=== PATIENT | female | born 1970 | race Caucasian/White ===

== ENCOUNTER 2020-07-22 16:13 | Outpatient (CLI) | payer OTHER, SELFPAY ==
[2020-07-24 13:59] LABS: SARS-CoV-2 RNA PCR Negative
== END 2020-07-22 16:14 | disposition home or self-care (01) ==
PROVIDERS: PCP Internal Medicine; Visit Provider Internal Medicine
DX: Z20.828 Contact with and (suspected) exposure to other viral communicable diseases (principal)
CPT/HCPCS: 87635; C9803; U0003

== ENCOUNTER 2023-10-18 19:54 | Outpatient (CLI) | payer OTHER, SELFPAY ==
--- NOTE | 2023-10-30 10:48 | WPDSLEEPSTUD ---
Sleep Study Date of Study: 10/18/23 Ordering Provider: Wolf Titus MD Interpreting Physician: Allison Lombardo MD Sleep Study Type: Polysomnogram Height: 1.6 m Weight: 57.606 kg Body Mass Index: 22.4 Neck Circumference (inches): 13 [place]: 7 Reason for Sleep Study Poor sleep, has tried sleeping pills, sound machine Sleep History Sherlyn Escalona is a 53-year-old woman with 10 years of poor sleep. She has tried sleeping pills and a sound machine.. She never awakens from sleep short of breath. She never wakes at night with heartburn, belching or coughing.??She never snores, never snores loudly enough that others complain. She constantly has trouble sleeping when she has a cold. She rarely wakes up gasping for breath during the night. She never has breathing problems at night. She occasionally sweats excessively at night. She rarely notices her heart pounding or beating irregularly during the night. She occasionally falls asleep during the day. She never falls asleep involuntarily, never falls asleep while driving. She never experiences loss of muscle tone with strong emotion. She never feels paralyzed on waking or falling asleep. She rarely experiences vivid dreams upon waking or falling asleep. She never feels afraid of going to sleep. She occasionally has nightmares. She occasional recalls her dreams. She frequently has thoughts racing through her mind. She never feels sad or depressed. She frequently feels anxiety. She rarely notices parts of her body jerk. She never kicks during the night. She never feels crawling or aching feelings in her legs. She never feels leg pain at night. She never has morning jaw pain, and occasionally grinds her teeth at night. She frequently feels bothered by pain during the day, is frequently awakened by pain during the night. She constantly wakes up feeling stiff in the morning, constantly wakes feeling sore or achy in the morning. She constantly awakens with pain in her neck, spine, or joints. She has memory problems, concentration difficulties, insomnia, fatigue and she takes antacids regularly. Normal bedtime is 9:00 p.m., falling asleep within 10-15 minutes, waking 4-5 times at night, goes to the bathroom, repositions herself and tries to return to sleep. On average, she is able to return to sleep within 5 minutes. She wakes in the morning by 7:15 a.m.. On weekends, bedtime is also 9:00 a.m., wake time is 8:00 a.m.. She estimates getting between 7 and 8 hours of sleep at night. She takes naps in the afternoon or evening. A short nap lasting 10-15 minute is not refreshing. She is usually drowsy on awakening. She feels better in the evening compared to other times of day. Habits:??Tobacco: Never smoker Caffeine: 1-2 cups per day. Alcohol: none Recreational substances: none [facility] Past Medical History Medical History (Updated 10/30/23 @ 11:34 by Allison Lombardo MD) Dysthymic disorder Gastroesophageal reflux disease without esophagitis Insomnia Irritable bowel syndrome (IBS) Psoriasis Rhinitis Family History Family History (Updated 10/30/23 @ 11:00 by Allison Lombardo MD) Other No problems noted. Mother Hypertension Depression Anxiety Diabetes mellitus Osteoporosis Grandparent Family history of leukemia Father CAD (coronary artery disease) Social History Social History (Updated 10/30/23 @ 11:00 by Allison Lombardo MD) Smoking status: Never smoker Alcohol intake: never Substance use: never Medications Medications: zolpidem 10 mg HS loratadine 10 mg fluticasone propionate 50 mcg per spray 2 sprays each nostril HS azelastine 137 mcg 0.1% 2 sprays each nostril b.i.d. nortriptyline 75 mg for IBS cholestyramine 4 g oral powder in juice twice a day ProAir HFA 90 mcg per puff, q.6 hours p.r.n. shortness of breath famotidine 20 mg b.i.d. Diprolene (augmented) 0.05% topical ointment b.i.d. Sleep Procedure A full night poly
[2023-10-30 11:06] VITALS: BMI 22.4
== END 2023-10-19 06:43 | disposition home or self-care (01) ==
PROVIDERS: PCP Internal Medicine; Visit Provider Internal Medicine
DX: R06.83 Snoring (principal); G47.30 Sleep apnea, unspecified
CPT/HCPCS: 95810

== ENCOUNTER 2023-11-09 16:26 | Outpatient (CLI) | payer OTHER, SELFPAY ==
--- NOTE | ~2023-11-09 | XR_ITS ---
EXAMINATION: XR knee LT 3V DATE: 11/09/2023 17:38 INDICATION: Left knee pain. TECHNIQUE: 3 views of left knee were obtained. COMPARISON: None. FINDINGS: Bone alignment is normal. No fracture. There is mild osteoarthritis of medial and patellofe moral compartments. No knee joint effusion. IMPRESSION: 1. Mild left knee osteoarthritis. Reviewed, dictated and finalized at location E. ITIAN CONSULTANT
--- NOTE | ~2023-11-09 | XR_ITS ---
EXAMINATION: XR wrist RT min 3V DATE: 11/09/2023 17:39 INDICATION: Right wrist pain. TECHNIQUE: 4 views of right wrist were obtained. COMPARISON: None. FINDINGS: Bone alignment is normal. There is neutral ulnar variance. No fracture. There is degenerati ve cystic change in proximal lunate. No joint space narrowing. IMPRESSION: 1. Degenerative cystic change in proximal lunate, which may be ulnolunate impaction syndrome. Reviewed, dictated and finalized at location E. RITY REPRESENTATIVE IMPRESSION: 1. Degenerative cystic change in proximal lunate, which may be ulnolunate impac tion syndrome.
--- NOTE | ~2023-11-09 | XR_ITS ---
EXAMINATION: XR foot RT min 3V DATE: 11/09/2023 17:39 INDICATION: Right foot pain. TECHNIQUE: 4 views of right foot were obtained. COMPARISON: None. FINDINGS: Bone alignment is normal. No fracture. There is mild osteoarthritis of first metatarsophala ngeal joint. IMPRESSION: 1. Mild osteoarthritis of first metatarsophalangeal joint. Reviewed, dictated and finalized at location E. ET MAN
--- NOTE | ~2023-11-09 | XR_ITS ---
EXAMINATION: XR hand LT min 3V DATE: 11/09/2023 17:39 INDICATION: Left hand pain. TECHNIQUE: 3 views of left hand were obtained. COMPARISON: None. FINDINGS: Bone alignment is normal. No fracture. There is mild osteoarthritis of third distal interph alangeal joint. IMPRESSION: 1. Mild osteoarthritis of third distal interphalangeal joint. Reviewed, dictated and finalized at location E. ATTENDANT
--- NOTE | ~2023-11-09 | XR_ITS ---
EXAMINATION: XR wrist LT min 3V DATE: 11/09/2023 17:40 INDICATION: Left wrist pain. TECHNIQUE: 4 views of left wrist were obtained. COMPARISON: None. FINDINGS: Bone alignment is normal. No fracture. Joint spaces are normal. IMPRESSION: 1. Normal left wrist. Reviewed, dictated and finalized at location E. ATTENDANT HELPER IMPRESSION: 1. Normal left wrist.
--- NOTE | ~2023-11-09 | XR_ITS ---
EXAMINATION: XR knee RT 3V DATE: 11/09/2023 17:38 INDICATION: Right knee pain. TECHNIQUE: 3 views of right knee were obtained. COMPARISON: None. FINDINGS: Bone alignment is normal. No fracture. There is mild osteoarthritis of medial and patellofe moral compartments. No knee joint effusion. IMPRESSION: 1. Mild right knee osteoarthritis. Reviewed, dictated and finalized at location E. WOMEN SERVICES
--- NOTE | ~2023-11-09 | XR_ITS ---
EXAMINATION: XR foot LT min 3V DATE: 11/09/2023 17:40 INDICATION: Left foot pain. TECHNIQUE: 4 views of left foot were obtained. COMPARISON: None. FINDINGS: Bone alignment is normal. No fracture. Joint spaces are normal. IMPRESSION: 1. Normal left foot. Reviewed, dictated and finalized at location E. L ANALYST IMPRESSION: 1. Normal left foot.
--- NOTE | ~2023-11-09 | XR_ITS ---
EXAMINATION: XR hand RT min 3V DATE: 11/09/2023 17:39 INDICATION: Right hand pain. TECHNIQUE: 3 views of right hand were obtained. COMPARISON: None. FINDINGS: Bone alignment is normal. No fracture. There is mild osteoarthritis of second distal interp halangeal joint. IMPRESSION: 1. Mild osteoarthritis of second distal interphalangeal joint. Reviewed, dictated and finalized at location E. ANALYSIS ENGINEERING TECHNICIAN
== END 2023-11-09 16:27 | disposition home or self-care (01) ==
LOC: CHSIMG 16:29
PROVIDERS: PCP Internal Medicine; Visit Provider Internal Medicine
DX: L40.50 Arthropathic psoriasis, unspecified (principal); M15.9 Polyosteoarthritis, unspecified
CPT/HCPCS: 73110; 73130; 73562; 73630

== ENCOUNTER 2024-09-27 14:14 | Outpatient (CLI) | payer OTHER, SELFPAY ==
--- NOTE | ~2024-09-27 | MM_ITS ---
EXAMINATION: MM screening noel BI w cyn HISTORY: Screening TECHNIQUE: Craniocaudal and mediolateral oblique 3-D tomosynthesis images were obtained and synthetic 2-D images were generated. CAD analysis was submitted and interpreted. COMPARISON: 10/03/2018 BREAST PARENCHYMAL COMPOSITION: Dense: The breasts are extremely dense, which lowers the sensitivity of mammography. FINDINGS: There is no evidence of suspicious mass, calcification, or architectural distortion to sugg est malignancy in either breast. There has been no suspicious interval change. IMPRESSION: 1. No mammographic evidence of malignancy. 2. Recommend routine screening mammography in one year. BI-RADS Category 1: Negative . Reviewed, dictated and finalized at location B. HOME SALES REPRESENTATIVE
--- OUTSIDE RECORDS SUMMARY | 2024-09-30 16:43 | XMS_ITS | Clinical Summary ---
Author Organization [facility] Address [address] [place] [address]. 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 Gender Identity Not on file Sexual Orientation Not on file Plan of Treatment Health Maintenance Due Date Last Done Comments Cervical Cancer Screening Pa p Smear (Age 30 to 64) Every 3 Years 1971 Colorectal Cancer Screening Colonoscopy (10 Years) 1971 Annual Physical 1974 Hepatitis C 1989 Hepatitis B Vaccines (1 of 3 - 19+ 3-dose series) 1990 Cervical Cancer Screening Pa p with HPV Testing (Age 30 to 64) Every 5 Years 2001 Cervical Cancer Screening wi th HPV 2001 Zoster Vaccines (1 of 2) 2021 DTaP, Tdap and Td Vaccines ( 2 - Td or Tdap) 08/14/2022 08/14/2012 Mammogram Screening 06/06/2024 06/06/2022 COVID-19 Vaccine (2023-2 5 season) 2024 02/05/2021, 01/15/2021 Influenza Adult (#1) 2024 Meningococcal Vaccine Aged Out No christi tianna eligible based on patient's age to complete this topic Pneumococcal Vaccine: Pediatrics (0 to 5 Years) and At-Risk Patients (6 to 64 Years) Aged Out No longer eligible b ased on patient's age to complete this topic RSV Immunizations Under 20 Months Aged Out No longer eligible b ased on patient's age to complete this topic Procedures Procedure Name Priority Date/Time Associated Diagnosis Comments MG SCREENING W VALERIA NICOLE DIGI Routine 06/06/2022 3:36 PM CDT Visit for screening mammogram from Last 3 Months or Most Recently Relevant to Health Maintenance Results * MG SCREENING W VALERIA NICOLE DIGI (06/06/2022 3:36 PM CDT) Anatomical Region Laterality Modality Breast Bilateral Mammography 07/04/2022 3:58 PM CDT Impressions 07/04/2022 3:59 PM CDT IMPRESSION: No suspicious change since the previous exams. Recommendation: 1: Routine Screening ??Bilateral ??in 1 Year Assessment: ACR BI-RADS 2 - BENIGN FINDING(S) Ordered By: CYNTHIA MAURO Interpreted By: Joe Coker MD, 07/04/2022 3:58 PM Narrative 07/04/2022 3:59 PM CDT Examination: Digital screening mammogram with CAD. Clinical history: Asymptomatic patient presents for routine screening. History of benign needle biopsy on the right. Comparison: 10/11/2018, 10/03/2018. Technique: Bilateral digital mammograms. The exam was interpreted with the use of a computer-aided detection (CAD) system. ??Additional 3-D tomosynthesis images were acquired. Tissue density: The breast tissue is heterogeneously dense. Findings: The breast tissue is heterogeneously dense. The dense tissue may obscure some lesions mammographically. ?? Minor glandular asymmetry remains evident. Metallic biopsy marker clips on the right are now evident. No suspicious mass, microcalcification or area of architectural distortion can be identified. From a mammographic standpoint, routine followup in one year would seem adequate. us Cynthia Mauro MD MAMMO Final Result from Last 3 Months or Most Recently Relevant to Health Maintenance Insurance [facility] Care Teams Aircraft Captain Relationship Specialty Start Date End Date Cynthia Mauro MD [address] [place] [address] PCP - General INTERNAL MEDICINE 05/27/22
--- OUTSIDE RECORDS SUMMARY | 2024-09-30 16:43 | XMS_ITS | Encounter Summary ---
Author Organization [facility] Address [address] [place] [address]. [place] [address] [place] [address] Care Team Providers Care Fish Bin Tender Name Role Phone Unavailable Primary Care Provider Unavailabl e Encounter Details Date Type Department Care Team (Late st Contact Info) Description 09/06/2011 Abstract [facility] [address] [place] [address] Oliver Weber MD [address] [place] [address] Social History Tobacco Use Types Packs/Day Years Used Date Smoking Tobacco: Never Assessed Comments Unknown Sex and Gender Information Value Date Recorded Sex Assigned at Not on file Legal Sex Female 6:[address] PILOT Gender Identity Not on file Sexual Orientation Not on file documented as of this encounter Plan of Treatment Not on file documented as of this encounter Visit Diagnoses Diagnosis Disorder of skin and subcutaneous tissue Unspecified disorder of skin and subcutaneous tissue documented in this encounter
--- OUTSIDE RECORDS SUMMARY | 2024-09-30 16:43 | XMS_ITS | Encounter Summary ---
Author Organization [facility] Address [address] [place] [address]. [place] [address] [place] [address] Care Team Providers Care Vocal Teacher Name Role Phone Unavailable Primary Care Provider Unavailabl e Encounter Details Date Type Department Care Team (Late st Contact Info) Description 11/07/[address] [facility] [address] [facility] [place] [address] Oliver Weber MD [address] [place] [address] Social History Tobacco Use Types Packs/Day Years Used Date Smoking Tobacco: Never Assessed Comments Unknown Sex and Gender Information Value Date Recorded Sex Assigned at Not on file Legal Sex Female 6:00 PM HOGSHEAD HAND Gender Identity Not on file Sexual Orientation Not on file documented as of this encounter Plan of Treatment Not on file documented as of this encounter Visit Diagnoses Not on filedocumented in this encounter
--- OUTSIDE RECORDS SUMMARY | 2024-09-30 16:43 | XMS_ITS | Encounter Summary ---
Author Organization [facility] Address [address] [place] [address]. 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
--- OUTSIDE RECORDS SUMMARY | 2024-09-30 16:43 | XMS_ITS | Encounter Summary ---
Author Organization [facility] Address [address] [place] [address]. [place] [address] [place] [address] Care Team Providers Care Process Validation Engineer Name Role Phone Unavailable Primary Care Provider Unavailabl e Encounter Details Date Type Department Care Team (Late st Contact Info) Description 09/09/2011 Abstract [facility] [address] [place] [address] Oliver Weber MD [address] [place] [address] Social History Tobacco Use Types Packs/Day Years Used Date Smoking Tobacco: Never Assessed Comments Unknown Sex and Gender Information Value Date Recorded Sex Assigned at Not on file Legal Sex Female 6:00 PM PORT CDL A DRIVER Gender Identity Not on file Sexual Orientation Not on file documented as of this encounter Plan of Treatment Not on file documented as of this encounter Visit Diagnoses Diagnosis Examination Unspecified examination documented in this encounter
--- OUTSIDE RECORDS SUMMARY | 2024-09-30 16:43 | XMS_ITS | Encounter Summary ---
Author Organization [facility] Address [address] [place] [address]. [place], [place] [address] [place] [address] Care Team Providers Care Staff Anesthesiologist Name Role Phone Wolf Titus MD Primary Care Provider [phone] Encounter Details Date Type Department Care Team (Latest Contact Info) Description 06/06/2022 Travel Social History Tobacco Use Types Packs/Day Years Used Date Smoking Tobacco: Never Assessed Comments Unknown Sex and Gender Information Value Date Recorded Sex Assigned at Not on file Legal Sex Female 6:00 PM OFFSET PLATE MAKER Gender Identity Not on file Sexual Orientation Not on file COVID-19 Exposure Response Date Recorded In the last 10 days, have yo u been in contact with someone who was confirmed or suspected to have Coronavirus/COVID-19? No / Unsure 06/06/2022 3:15 PM CDT documented as of this encounter Plan of Treatment Not on file documented as of this encounter Visit Diagnoses Not on filedocumented in this encounter Care Teams Staff Anesthesiologist Relationship Specialty Start Date End Date Wolf Titus MD [address] [place] [address] PCP - General INTERNAL MEDICINE 05/27/22 documented as of this encounter
--- OUTSIDE RECORDS SUMMARY | 2024-09-30 16:43 | XMS_ITS | Encounter Summary ---
Author Organization [facility] Address [address] [place] [address]. 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
--- OUTSIDE RECORDS SUMMARY | 2024-09-30 16:43 | XMS_ITS | Encounter Summary ---
Author Organization [facility] Address [address] [place] [address]. [place] [address] [place] [address] Care Team Providers Care Pediatrics Physician Name Role Phone Unavailable Primary Care Provider Unavailabl e Encounter Details Date Type Department Care Team (Late st Contact Info) Description 05/28/[address] [facility] [address] [place] [address] Oliver Weber MD [address] [place] [address] Social History Tobacco Use Types Packs/Day Years Used Date Smoking Tobacco: Never Assessed Comments Unknown Sex and Gender Information Value Date Recorded Sex Assigned at Not on file Legal Sex Female 6:00 PM AWAKE OVERNIGHT COUNSELOR Gender Identity Not on file Sexual Orientation Not on file documented as of this encounter Plan of Treatment Not on file documented as of this encounter Visit Diagnoses Not on filedocumented in this encounter
--- OUTSIDE RECORDS SUMMARY | 2024-09-30 16:43 | XMS_ITS | Encounter Summary ---
Author Organization [facility] Address [address] [place] [address]. [place] [address] [place] [address] Care Team Providers Care Finance Effectiveness Manager Name Role Phone Wolf Mauro MD Primary Care Provider [phone] Reason for Visit * Imaging (Routine) - Closed Specialty Diagnoses / Procedures Referred By Contac t Referred To Contact RADIOLOGY Diagnoses Visit for screening mammogram Procedures MG SCREENING W VALERIA NICOLE DIGI Wolf Mauro MD [address] [place] [address] Phone: tel: fax: Referral ID Status Reason Start Date Expiration Date Visits Re quested Visits Authorized [id number] Closed 05/27/2022 05/27/2023 1 1 Encounter Details Date Type Department Care Team (Late st Contact Info) Description 06/06/2022 3:18 PM CDT - 06/06/2022 11:59 PM CDT Hospital Encounter [facility] [address] [place] [address] Wolf Mauro MD [address] [place] [address] Discharge Disposition: Home or Self Care (Routine Discharge) Social History Tobacco Use Types Packs/Day Years Used Date Smoking Tobacco: Never Assessed Comments Unknown Sex and Gender Information Value Date Recorded Sex Assigned at Not on file Legal Sex Female 6:00 PM SOIL SCIENCE TECHNICAL OFFICER Gender Identity Not on file Sexual Orientation Not on file COVID-19 Exposure Response Date Recorded In the last 10 days, have yo u been in contact with someone who was confirmed or suspected to have Coronavirus/COVID-19? No / Unsure 06/06/2022 3:15 PM CDT documented as of this encounter Plan of Treatment Not on file documented as of this encounter Procedures Procedure Name Priority Date/Time Associated Diagnosis Comments MG SCREENING W VALERIA NICOLE DIGI Routine 06/06/2022 3:36 PM CDT Visit for screening mammogram documented in this encounter Results * MG SCREENING W VALERIA NICOLE DIGI (06/06/2022 3:36 PM CDT) Anatomical Region Laterality Modality Breast Bilateral Mammography 07/04/2022 3:58 PM CDT Impressions 07/04/2022 3:59 PM CDT IMPRESSION: No suspicious change since the previous exams. Recommendation: 1: Routine Screening ??Bilateral ??in 1 Year Assessment: ACR BI-RADS 2 - BENIGN FINDING(S) Ordered By: WOLF MAURO Interpreted By: Joe Coker MD, 07/04/2022 [...] in one year would seem adequate. us Wolf Mauro MD MAMMO Final Result documented in this encounter Visit Diagnoses Not on filedocumented in this encounter Care Teams Finance Effectiveness Manager Relationship Specialty Start Date End Date Wolf Mauro MD [address] [place] [id number] PCP - General INTERNAL MEDICINE 05/27/22 documented as of this encounter
--- OUTSIDE RECORDS SUMMARY | 2024-09-30 16:43 | XMS_ITS | Encounter Summary ---
Author Organization [facility] Address [address] [place] [address]. [place] [address] [place] [address] Care Team Providers Care Roasterman Name Role Phone Unavailable Primary Care Provider Unavailabl e Encounter Details Date Type Department Care Team (Late st Contact Info) Description 03/02/[address] 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
--- OUTSIDE RECORDS SUMMARY | 2024-09-30 16:43 | XMS_ITS | Encounter Summary ---
Author Organization [facility] Address [address] [place] [address]. [place] [address] [place] [address] Care Team Providers Care Dietary Service Aide Name Role Phone Unavailable Primary Care Provider Unavailabl e Encounter Details Date Type Department Care Team (Late st Contact Info) Description 05/29/[address] 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
--- OUTSIDE RECORDS SUMMARY | 2024-09-30 16:43 | XMS_ITS | Encounter Summary ---
Author Organization [facility] Address [address] [place] [address]. [place] [address] [place] [address] Care Team Providers Care Transport Analyst Name Role Phone Unavailable Primary Care Provider Unavailabl e Encounter Details Date Type Department Care Team (Late st Contact Info) Description 06/14/[address] [facility] [address] [place] [address] Oliver Weber MD [address] [place] [address] Social History Tobacco Use Types Packs/Day Years Used Date Smoking Tobacco: Never Assessed Comments Unknown Sex and Gender Information Value Date Recorded Sex Assigned at Not on file Legal Sex Female 6:00 PM ANESTHESIOLOGY MEDICAL DOCTOR Gender Identity Not on file Sexual Orientation Not on file documented as of this encounter Plan of Treatment Not on file documented as of this encounter Visit Diagnoses Diagnosis Pain in joint, upper arm documented in this encounter
--- OUTSIDE RECORDS SUMMARY | 2024-09-30 16:43 | XMS_ITS | Encounter Summary ---
Author Organization [facility] Address [address] [place] [address]. [place] [address] [place] [address] Care Team Providers Care Logistician Name Role Phone Unavailable Primary Care Provider Unavailabl e Encounter Details Date Type Department Care Team (Late st Contact Info) Description 02/08/2016 Abstract [facility] [address] [facility] [place] [address] Latasha Carabjal MD [address] [place], [place] [address] Social History Tobacco Use Types Packs/Day Years Used Date Smoking Tobacco: Never Assessed Comments Unknown Sex and Gender Information Value Date Recorded Sex Assigned at Not on file Legal Sex Female 6:00 PM CHIEF I DISPATCHER Gender Identity Not on file Sexual Orientation Not on file documented as of this encounter Plan of Treatment Not on file documented as of this encounter Visit Diagnoses Diagnosis Contusion of right elbow Contusion of elbow documented in this encounter
--- OUTSIDE RECORDS SUMMARY | 2024-09-30 16:43 | XMS_ITS | Encounter Summary ---
Author Organization [facility] Address [address] [place] [address]. [place] [address] [place] [address] Care Team Providers Care Business Law Instructor Name Role Phone Unavailable Primary Care Provider Unavailabl e Encounter Details Date Type Department Care Team (Late st Contact Info) Description 07/13/[address] [facility] [address] 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
--- OUTSIDE RECORDS SUMMARY | 2024-09-30 16:44 | XMS_ITS | Encounter Summary ---
Author Organization [facility] Address [address] [place] [address]. 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
--- OUTSIDE RECORDS SUMMARY | 2024-09-30 16:44 | XMS_ITS | Encounter Summary ---
Author Organization [facility] Address [address] [place] [address]. [place] [address] [place] [address] Care Team Providers Care Floating Labor Gang Supervisor Name Role Phone Unavailable Primary Care Provider Unavailabl e Encounter Details Date Type Department Care Team (Late st Contact Info) Description 11/19/2002 Abstract [facility] [address] [place] [address] , Generic Conversion, Social History Tobacco Use Types Packs/Day Years Used Date Smoking Tobacco: Never Assessed Comments Unknown Sex and Gender Information Value Date Recorded Sex Assigned at Not on file Legal Sex Female 6:00 PM PRIVATE BRANCH EXCHANGE OPERATOR Gender Identity Not on file Sexual Orientation Not on file documented as of this encounter Plan of Treatment Not on file documented as of this encounter Visit Diagnoses Not on filedocumented in this encounter
--- OUTSIDE RECORDS SUMMARY | 2024-09-30 16:44 | XMS_ITS | Encounter Summary ---
Author Organization [facility] Address [address] [place] [address]. [place] [address] [place] [address] Care Team Providers Care Customer Experience Manager Name Role Phone Unavailable Primary Care Provider Unavailabl e Encounter Details Date Type Department Care Team (Late st Contact Info) Description 06/13/2000 Abstract [facility] [address] [place] [address] , Generic Conversion, Social History Tobacco Use Types Packs/Day Years Used Date Smoking Tobacco: Never Assessed Comments Unknown Sex and Gender Information Value Date Recorded Sex Assigned at Not on file Legal Sex Female 6:00 PM COMPONENT LAB TECH Gender Identity Not on file Sexual Orientation Not on file documented as of this encounter Plan of Treatment Not on file documented as of this encounter Visit Diagnoses Not on filedocumented in this encounter
--- OUTSIDE RECORDS SUMMARY | 2024-09-30 16:44 | XMS_ITS | Encounter Summary ---
Author Organization [facility] Address [address] [place] [address]. [place] [address] [place] [address] Care Team Providers Care Transportation Maintenance Worker Name Role Phone Unavailable Primary Care Provider Unavailabl e Encounter Details Date Type Department Care Team (Late st Contact Info) Description 09/27/2001 Abstract [facility] [address] [place] [address] , Generic Conversion, Social History Tobacco Use Types Packs/Day Years Used Date Smoking Tobacco: Never Assessed Comments Unknown Sex and Gender Information Value Date Recorded Sex Assigned at Not on file Legal Sex Female 6:00 PM FLASK PUSHER Gender Identity Not on file Sexual Orientation Not on file documented as of this encounter Plan of Treatment Not on file documented as of this encounter Visit Diagnoses Not on filedocumented in this encounter
--- OUTSIDE RECORDS SUMMARY | 2024-09-30 16:44 | XMS_ITS | Encounter Summary ---
Author Organization [facility] Address [address] [place] [address]. [place] [address] [place] [address] Care Team Providers Care Personal Assistant Name Role Phone Unavailable Primary Care Provider Unavailabl e Encounter Details Date Type Department Care Team (Late st Contact Info) Description 07/13/2000 Abstract [facility] [address] [place] [address] , Generic Conversion, Social History Tobacco Use Types Packs/Day Years Used Date Smoking Tobacco: Never Assessed Comments Unknown Sex and Gender Information Value Date Recorded Sex Assigned at Not on file Legal Sex Female 6:00 PM CLINICAL INFORMATICS EDUCATOR Gender Identity Not on file Sexual Orientation Not on file documented as of this encounter Plan of Treatment Not on file documented as of this encounter Visit Diagnoses Not on filedocumented in this encounter
--- OUTSIDE RECORDS SUMMARY | 2024-09-30 16:44 | XMS_ITS | Encounter Summary ---
Author Organization [facility] Address [address] [place] [address]. [place] [address] [place] [address] Care Team Providers Care Senior Auditor Name Role Phone Unavailable Primary Care Provider Unavailabl e Encounter Details Date Type Department Care Team (Late st Contact Info) Description 06/08/2000 Abstract [facility] [address] [place] [address] , Generic Conversion, Social History Tobacco Use Types Packs/Day Years Used Date Smoking Tobacco: Never Assessed Comments Unknown Sex and Gender Information Value Date Recorded Sex Assigned at Not on file Legal Sex Female 6:00 PM RAIL SIGNAL DESIGNER Gender Identity Not on file Sexual Orientation Not on file documented as of this encounter Plan of Treatment Not on file documented as of this encounter Visit Diagnoses Not on filedocumented in this encounter
--- OUTSIDE RECORDS SUMMARY | 2024-09-30 16:44 | XMS_ITS | Encounter Summary ---
Author Organization [facility] Address [address] [place] [address]. [place] [address] [place] [address] Care Team Providers Care Galvanometer Assembler Name Role Phone Unavailable Primary Care Provider Unavailabl e Encounter Details Date Type Department Care Team (Late st Contact Info) Description 07/27/2000 Abstract [facility] [address] [place] [address] , Generic Conversion, Social History Tobacco Use Types Packs/Day Years Used Date Smoking Tobacco: Never Assessed Comments Unknown Sex and Gender Information Value Date Recorded Sex Assigned at Not on file Legal Sex Female 6:00 PM COMMERCIAL HOUSEKEEPER Gender Identity Not on file Sexual Orientation Not on file documented as of this encounter Plan of Treatment Not on file documented as of this encounter Visit Diagnoses Not on filedocumented in this encounter
--- OUTSIDE RECORDS SUMMARY | 2024-09-30 16:44 | XMS_ITS | Encounter Summary ---
Author Organization [facility] Address [address] [place] [address]. [place] [address] [place] [address] Care Team Providers Care Balance Wheel Facer Name Role Phone Unavailable Primary Care Provider Unavailabl e Encounter Details Date Type Department Care Team (Late st Contact Info) Description 08/03/2000 Abstract [facility] [address] [address] , Generic Conversion, Social History Tobacco Use Types Packs/Day Years Used Date Smoking Tobacco: Never Assessed Comments Unknown Sex and Gender Information Value Date Recorded Sex Assigned at Not on file Legal Sex Female 6:00 PM DIRECTOR OF GRADUATE MEDICAL EDUCATION Gender Identity Not on file Sexual Orientation Not on file documented as of this encounter Plan of Treatment Not on file documented as of this encounter Visit Diagnoses Not on filedocumented in this encounter
--- OUTSIDE RECORDS SUMMARY | 2024-09-30 16:44 | XMS_ITS | Encounter Summary ---
Author Organization [facility] Address [address] [place] [address]. [place] [address] [place] [address] Care Team Providers Care Automatic Oven Operator Name Role Phone Unavailable Primary Care Provider Unavailabl e Encounter Details Date Type Department Care Team (Late st Contact Info) Description 06/15/2000 Abstract [facility] [address] [place] [address] , Generic Conversion, Social History Tobacco Use Types Packs/Day Years Used Date Smoking Tobacco: Never Assessed Comments Unknown Sex and Gender Information Value Date Recorded Sex Assigned at Not on file Legal Sex Female 6:00 PM PSYCHOTHERAPIST Gender Identity Not on file Sexual Orientation Not on file documented as of this encounter Plan of Treatment Not on file documented as of this encounter Visit Diagnoses Not on filedocumented in this encounter
--- OUTSIDE RECORDS SUMMARY | 2024-09-30 16:44 | XMS_ITS | Encounter Summary ---
Author Organization [facility] Address [address] [place] [address]. [place] [address] [place] [address] Care Team Providers Care Diploma Dental Assistant Name Role Phone Unavailable Primary Care Provider Unavailabl e Encounter Details Date Type Department Care Team (Late st Contact Info) Description 02/25/[address] [facility] [address] [facility] [place] [address] Oliver Weber MD [address] [place] [address] Social History Tobacco Use Types Packs/Day Years Used Date Smoking Tobacco: Never Assessed Comments Unknown Sex and Gender Information Value Date Recorded Sex Assigned at Not on file Legal Sex Female 6:00 PM FRAME REPAIRER Gender Identity Not on file Sexual Orientation Not on file documented as of this encounter Plan of Treatment Not on file documented as of this encounter Visit Diagnoses Not on filedocumented in this encounter
--- OUTSIDE RECORDS SUMMARY | 2024-09-30 16:44 | XMS_ITS | Encounter Summary ---
Author Organization [facility] Address [address] [place] [address]. [place] [address] [place] [address] Care Team Providers Care Investigator Narcotics Name Role Phone Unavailable Primary Care Provider Unavailabl e Encounter Details Date Type Department Care Team (Late st Contact Info) Description 07/20/2000 Abstract [facility] [address] [place] [address] , Generic Conversion, Social History Tobacco Use Types Packs/Day Years Used Date Smoking Tobacco: Never Assessed Comments Unknown Sex and Gender Information Value Date Recorded Sex Assigned at Not on file Legal Sex Female 6:00 PM PEDIATRIC CNS Gender Identity Not on file Sexual Orientation Not on file documented as of this encounter Plan of Treatment Not on file documented as of this encounter Visit Diagnoses Not on filedocumented in this encounter
--- OUTSIDE RECORDS SUMMARY | 2024-09-30 16:44 | XMS_ITS | Encounter Summary ---
Author Organization [facility] Address [address] [place] [address]. [place] [address] [place] [address] Care Team Providers Care Supervisor Education Name Role Phone Unavailable Primary Care Provider Unavailabl e Encounter Details Date Type Department Care Team (Late st Contact Info) Description 06/29/2000 Abstract [facility] [address] [place] [address] , Generic Conversion, Social History Tobacco Use Types Packs/Day Years Used Date Smoking Tobacco: Never Assessed Comments Unknown Sex and Gender Information Value Date Recorded Sex Assigned at Not on file Legal Sex Female 6:00 PM CHIEF STRATEGY OFFICER Gender Identity Not on file Sexual Orientation Not on file documented as of this encounter Plan of Treatment Not on file documented as of this encounter Visit Diagnoses Not on filedocumented in this encounter
--- OUTSIDE RECORDS SUMMARY | 2024-09-30 16:44 | XMS_ITS | Encounter Summary ---
Author Organization [facility] Address [address] [place] [address]. [place] [address] [place] [address] Care Team Providers Care Wafer Cutter Name Role Phone Unavailable Primary Care Provider Unavailabl e Encounter Details Date Type Department Care Team (Late st Contact Info) Description 06/22/2000 Abstract [facility] [address] [place] [address] , Generic Conversion, Social History Tobacco Use Types Packs/Day Years Used Date Smoking Tobacco: Never Assessed Comments Unknown Sex and Gender Information Value Date Recorded Sex Assigned at Not on file Legal Sex Female 6:00 PM CUT OFF SAW SET UP OPERATOR Gender Identity Not on file Sexual Orientation Not on file documented as of this encounter Plan of Treatment Not on file documented as of this encounter Visit Diagnoses Not on filedocumented in this encounter
== END 2024-09-27 14:15 | disposition home or self-care (01) ==
LOC: CHSIMG 14:16
PROVIDERS: PCP Internal Medicine; Visit Provider Obstetrics & Gynecology
DX: Z12.31 Encounter for screening mammogram for malignant neoplasm of breast (principal)
CPT/HCPCS: 77063; 77067

== ENCOUNTER 2025-04-10 16:38 | Emergency (ER) | payer OTHER, SELFPAY ==
--- NOTE | ~2025-04-10 | XR_ITS ---
EXAMINATION: XR chest 2V DATE: 04/10/2025 17:07 INDICATION: Chest pain TECHNIQUE: PA and lateral views of the chest were obtained. COMPARISON: None FINDINGS: The lungs are clear with no focal airspace opacities, pulmonary edema, pleural effusion or pneumothor ax. The cardiomediastinal silhouette is normal. Mild thoracic spondylosis. IMPRESSION: 1. No acute cardiopulmonary disease. Reviewed, dictated and finalized at location A.
[2025-04-10 16:38] VITALS: BP 162/108; PULSE 96; RESP 18; TEMP 36.7; O2SAT 100
--- NOTE | 2025-04-10 16:42 | ECG_ITS ---
Test Date: 2025-04-10 16:43:05 Measurements Intervals [place] Rate: 95 P: 71 MN: 141 QRS: 71 QRSD: 85 T: 62 QT: 346 QTc: 435 Interpretive Statements SINUS RHYTHM BASELINE ARTIFACT- II, III, AVR, AVL, AVF, V1 NORMAL ECG No previous ECG available for comparison Electronically Signed On 04-10-2025 20:35:16 CDT by Brent Arambula D.O.
[2025-04-10 16:49] VITALS: PULSE 89; RESP 16; O2SAT 100; O2SAT 98
[2025-04-10 17:00] VITALS: BP 138/90; PULSE 99; RESP 20
[2025-04-10 17:01] LABS: Basophils Absolute Auto 0.08 K/mm3 (0.00-0.10); Basophils Percent Auto 1.2 % (0.0-1.0); Eosinophils Absolute Auto 0.32 K/mm3 (0.02-0.50); Eosinophils Percent Auto 4.6 % (1.0-6.0); Hematocrit 38.7 % (35.0-49.0); Hemoglobin 12.6 g/dL (12.0-15.0); Immature Granulocyte Absolute 0.02 K/mm3 (0.00-0.00); Immature Granulocyte Percent A 0.3 % (0.0-0.0); Lymphocytes Absolute Auto 1.92 K/mm3 (1.10-4.50); Lymphocytes Percent Auto 27.9 % (18.0-42.0); Mean Corpuscular HGB Conc 32.6 g/dL (32-36); Mean Corpuscular Hemoglobin 31.2 pg (27.0-31.0); Mean Corpuscular Volume 95.8 fL (78.0-102.0); Mean Platelet Volume 9.6 fl (9.2-11.8); Monocytes Percent Auto 11.6 % (2.0-11.0); Neutrophils Absolute Auto 3.75 K/mm3 (1.70-7.20); Neutrophils Percent Auto 54.4 % (50.0-70.0); Platelet Count Result 285 K/mm3 (150-420); Red Blood Count 4.04 M/mm3 (4.20-5.40); Red Cell Distribution Width 12.4 % (11.6-14.4); White Blood Count 6.9 K/mm3 (4.8-10.8)
[2025-04-10 17:13] LABS: Alanine Aminotransferase 19 U/L (6-35); Albumin Level 4.2 g/dL (3.5-5.1); Alkaline Phosphatase 63 U/L (38-126); Anion Gap 5 mmol/L (4-12); Aspartate Amino Transferase 27 U/L (14-36); Bilirubin,Total 0.4 mg/dL (0.2-1.3); Blood Urea Nitrogen 18 mg/dL (7-17); Calcium 8.9 mg/dL (8.4-10.2); Carbon Dioxide 26 mmol/L (22-30); Chloride 107 mmol/L (98-107); D Dimer 0.19 mg/L (0.19-0.50); Estimated CRCL calculation 38 ml/min; Estimated Glomerular Filt Rate 44; Glucose 99 mg/dL (65-110); INR 0.9; Lipase 106 U/L (23-300); Osmolality Calculated 287 mOsm/kg (285-295); Potassium 4.6 mmol/L (3.4-5.0); Prothrombin Time 10.3 Seconds (9.50-12.1); Sodium 138 mmol/L (137-145); Total Protein 7.3 g/dL (6.3-8.2)
[2025-04-10 17:15] VITALS: PULSE 85; RESP 15; O2SAT 98
[2025-04-10 17:24] LABS: NT Pro B Type Natriuretic Pept 34 pg/mL (19.9-100); Troponin I < 0.012 ng/mL (0.000-0.034)
--- NOTE | 2025-04-10 17:28 | ED_ITS ---
HPI - Chest Pain General Chief Complaint: Chest Pain Stated Complaint: Chest pain Time Seen by Provider: 04/10/25 16:42 Source: patient Mode of arrival: ambulatory Limitations: no limitations History of Present Illness HPI narrative: this is a 54-year-old female with no significant past medical history was at her primary care office and developed chest discomfort radiating to her back with no shortness of breath pain was reproducible with compression palpation with no nausea vomiting abdominal pain no flank pain no dysuria no diarrhea constipation no fever chills. complaint: chest discomfort Onset (ago): hour(s) Related Data Home Medications ?Medication ?Instructions ?Recorded ?Confirmed ?Last Taken ?Type nortriptyline 75 mg capsule 75 mg PO QHS 07/12/24 07/12/24 Unknown History zolpidem 5 mg tablet 5 mg PO QHS 07/12/24 04/10/25 Unknown History famotidine 20 mg tablet 20 mg PO DAILY 04/10/25 Unknown History folic acid 1 mg tablet 1 mg PO DAILY 04/10/25 Unknown History methotrexate sodium 2.5 mg tablet 2.5 mg PO DAILY 04/10/25 Unknown History zolpidem 10 mg tablet 10 mg PO DAILY 04/10/25 Unknown History Allergies Allergy/AdvReac Type Severity Reaction Status Date / Time NKDA no latex Allergy Unknown Unknown Uncoded 04/10/25 17:02 none Allergy Unknown Unknown Uncoded 04/10/25 17:02 NA Allergy Unknown Uncoded 04/10/25 17:02 Review of Systems 2 Review of Systems: All systems reviewed & are unremarkable except as noted in HPI and below PMFSH Past Medical History Medical History Screening mammogram, encounter for Dysthymic disorder Gastroesophageal reflux disease without esophagitis Irritable bowel syndrome (IBS) Psoriasis Rhinitis Insomnia Surgical History Surgical History H/O right breast biopsy (~2019) Benign Family History Family History Other No problems noted. Mother Hypertension Depression Anxiety Diabetes mellitus Osteoporosis Breast cancer Heart disease Grandparent Family history of leukemia Acute myocardial infarction maternal and paternal grandparents Diabetes mellitus maternal grandmother and grandfather Leukemia maternal grandmother Father CAD (coronary artery disease) Social History Social History Smoking status: Never smoker Second hand tobacco smoke exposure: No Alcohol intake: never Substance use: never Substance use type: does not use Do You Feel Safe in your Home?: Yes Lack of Transportation: No Lack of Food: Never True Current Housing: I Have Housing Concerned About Future Housing: No Difficulty Paying Gas/Electric Bills: No Difficulty Paying for Meds: No Currently Unemployed: No Education: High School Diploma/GED Difficulty w/ Childcare or Family Care: No Living arrangements: with family Additional living arrangements comments: Occupation/Education: occupation 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 Gender identity (if verbalized by the patient): Female Sexual Orientation (if Verbalized by the Patient): Straight or Heterosexual Exam 2 Const: General: healthy appearing and no acute distress Nutritional Appearance: well nourished Orientation/consciousness: patient oriented x3 Limitations: no limitations Neck: Neck: normal visual inspection, no lymphadenopathy and no meningeal signs Chest: Chest palpation & inspection: normal inspection of the chest Resp: Effort & Inspection: normal respiratory effort Auscultation: clear to auscultation bilaterally Cardio: Rate: regular rate Rhythm: regular rhythm GI: GI Palp: Yes Soft to palpation Auscultation: normal bowel sounds : General: Yes bladder normal to palpation Skin: General skin exam: normal color Rashes: no rashes Neuro: General: patient oriented x3, moves all extremities, no meningeal signs and no focal motor deficits Extrem: General: normal to inspection Psych: Mental Status: mental status grossly normal Course Course Emergency Course: Patient had an EKG which showed normal sinus rhythm chest x-ray with no acute cardiopulmonary abnormalities blood work including troponins and D-dimer negative white count was within normal limits. The patient declined any pain medicine at this time with some pain level of 2 out 10 reproducible palpation with no shortness of breath no nausea vomiting no diaphoresis patient is a nonsmoker. Vital Signs Vital signs: Vital Signs Temperature 36.7 C 04/10/25 16:38 Pulse Rate 96 04/10/25 16:38 Respiratory Rate 18 04/10/25 16:38 Blood Pressure 162/108 H 04/10/25 16:38 Pulse Oximetry 100 04/10/25 16:38 Oxygen Delivery Room Air 04/10/25 16:38 Temperature 36.7 C 04/10/25 16:38 Pulse Rate 96 04/10/25 16:38 Respiratory Rate 18 04/10/25 16:38 Blood Pressure 162/108 H 04/10/25 16:38 Pulse Oximetry 100 04/10/25 16:49 Oxygen Delivery Room Air 04/10/25 16:49 MDM - Chest Pain Lab Data 04/10/25 16:56 04/10/25 16:56 Labs: Lab Results 04/10/25 Range/Units 16:56 WBC 6.9 (4.8-10.8) K/mm3 RBC 4.04 L (4.20-5.40) M/mm3 Hgb 12.6 (12.0-15.0) g/dL Hct 38.7 (35.0-49.0) % MCV 95.8 (78.0-102.0) fL MCH 31.2 H (27.0-31.0) pg MCHC 32.6 (32-36) g/dL RDW 12.4 (11.6-14.4) % Plt Count 285 (150-420) K/mm3 MPV 9.6 (9.2-11.8) fl Immature Gran % (Auto) 0.3 H (0.0-0.0) % Neut % (Auto) 54.4 (50.0-70.0) % Lymph % (Auto) 27.9 (18.0-42.0) % Anson % (Auto) 11.6 H (2.0-11.0) % Eos % (Auto) 4.6 (1.0-6.0) % Baso % (Auto) 1.2 H (0.0-1.0) % Lymph # (Auto) 1.92 (1.10-4.50) K/mm3 Anson # (Auto) 0.80 (0.10-0.90) K/mm3 Eos # (Auto) 0.32 (0.02-0.50) K/mm3 Baso # (Auto) 0.08 (0.00-0.10) K/mm3 Abs Immat Gran (auto) 0.02 H (0.00-0.00) K/mm3 Absolute Neuts (auto) 3.75 (1.70-7.20) K/mm3 Absolute Nucleated RBC 0.00 (0.00-0.00) K/mm3 Nucleated RBC % 0.0 (0-0.0) % PT 10.3 (9.50-12.1) Seconds INR 0.9 APTT 24.0 (23.9-30.70) Sec D-Dimer 0.19 (0.19-0.50) mg/L Sodium 138 (137-145) mmol/L Potassium 4.6 (3.4-5.0) mmol/L Chloride 107 (98-107) mmol/L Carbon Dioxide 26 (22-30) mmol/L Anion Gap 5 (4-12) mmol/L BUN 18 H (7-17) mg/dL Creatinine 1.26 H (0.7-1.0) mg/dL Estim Creat Clear Calc 38 ml/min Estimated GFR 44 L (59 - ) Glucose 99 (65-110) mg/dL Calculated Osmolality 287 (285-295) mOsm/kg Calcium 8.9 (8.4-10.2) mg/dL Total Bilirubin 0.4 (0.2-1.3) mg/dL AST 27 (14-36) U/L ALT 19 (6-35) U/L Alkaline Phosphatase 63 (38-126) U/L Troponin I < 0.012 (0.000-0.034) ng/mL NT-Pro-B Natriuret Pep 34 (19.9-100) pg/mL Total Protein 7.3 (6.3-8.2) g/dL Albumin 4.2 (3.5-5.1) g/dL Lipase 106 (23-300) U/L Critical Care Time Critical Care Time Critical Care Time: No Discharge Plan Discharge Clinical Impression: Atypical chest pain, Costalchondritis Patient Disposition: Home Condition: Stable Instructions: Antibiotic Form, Chest Wall Pain (ED) Additional Instructions: Advised patient to follow primary care physician within 3 to 5 days for further evaluation and treatment take Tylenol or Motrin as needed. Patient Language: Urdu Prescriptions: No Action famotidine 20 mg tablet 20 mg PO DAILY folic acid 1 mg tablet 1 mg PO DAILY methotrexate sodium 2.5 mg tablet 2.5 mg PO DAILY zolpidem 10 mg tablet 10 mg PO DAILY nortriptyline 75 mg capsule 75 mg PO QHS zolpidem 5 mg tablet 5 mg PO QHS Rx Instructions: may repeat once if no response in 30-60 minutes Follow-up/Referrals: Wolf Titus MD [Primary Care Provider] - Time of Disposition: 17:32
[2025-04-10 17:30] VITALS: PULSE 85; RESP 19; O2SAT 99
[2025-04-10 17:32] VITALS: BP 140/100; PULSE 89; PULSE 96; RESP 18; RESP 20; O2SAT 100; O2SAT 99
== END 2025-04-10 17:42 | disposition home or self-care (01) ==
PROVIDERS: Emergency Provider Emergency Medicine; PCP Internal Medicine
DX: M94.0 Chondrocostal junction syndrome [Tietze] (principal); Z79.899 Other long term (current) drug therapy
CPT/HCPCS: 36415; 71046; 80053; 83690; 83880; 84484; 85025; 85380; 85610; 85730; 93005; 99284